=== PATIENT | female | born 1950 | race African-American/Black ===

== ENCOUNTER 2025-06-29 11:04 | Outpatient (CLI) | payer MEDICARE | END 2025-06-29 11:05 | disposition home or self-care (01) | LOC: BICMAMMO 11:04 | PROVIDERS: ATTEND Family Medicine | DX: Z78.0 Asymptomatic menopausal state (principal); M85.851 Other specified disorders of bone density and structure, right thigh; M85.852 Other specified disorders of bone density and structure, left thigh | CPT/HCPCS: 77080 ==